=== PATIENT | male | born 1935 | race Hispanic/Latino ===

== ENCOUNTER → 2018-12-28 | Outpatient (CLI) | payer OTHER ==
[~2018-12-28] MED LIST: AMLO5TAB9 PO; ASPI-555 PO; ESOM40VI2 IV; LOSA100T58 PO
== END | disposition home or self-care (01) ==
LOC: RAH 11:36
PROVIDERS: ATTEND Internal Medicine
DX: M17.0 Bilateral primary osteoarthritis of knee (principal); M25.462 Effusion, left knee
CPT/HCPCS: 73562

== ENCOUNTER → 2024-04-02 | Outpatient (CLI) | payer OTHER ==
[~2024-04-02] MED LIST changes: +AMLO-257 PO; -AMLO5TAB9 PO; -ASPI-555 PO; +ASPI-556 PO; -LOSA100T58 PO; +LOSA100T59 PO
--- NOTE | 2024-04-02 12:18 | HMCIMG ---
RIBS UNILAT 2V LT REASON: PLEURODYNIA TECHNIQUE: 3 views were obtained. FINDINGS: There is no evidence of fracture or dislocation. Underlying lung appears clear. The soft tissues appear unremarkable. There is no evidence of a radiopaque foreign body. IMPRESSION: No acute findings.
--- NOTE | 2024-04-02 13:17 | HMCIMG ---
Exam: CERVICAL SPINE 2 VIEWS REASON: CERVICALGIA TECHNIQUE: 3 views were obtained. FINDINGS: There are normal appearing vertebral bodies. There is moderate interspace narrowing C5-6 and C6-7. Remaining interspaces are preserved. There are no visible fractures. Soft tissues appear unremarkable. IMPRESSION: 1. Moderate degenerative disc disease C5-6 and C6-7. 2. No acute finding.
== END | disposition home or self-care (01) ==
LOC: RAH 09:48
PROVIDERS: ATTEND Internal Medicine
DX: M50.322 Other cervical disc degeneration at C5-C6 level (principal); M50.323 Other cervical disc degeneration at C6-C7 level; M48.02 Spinal stenosis, cervical region; R07.89 Other chest pain; R07.81 Pleurodynia
CPT/HCPCS: 71100; 72040

== ENCOUNTER → 2024-04-03 | Outpatient (CLI) | payer OTHER ==
--- NOTE | 2024-04-03 15:53 | HMCIMG ---
Exam: NONCONTRAST CT BRAIN REASON: HEADACHE. COMPARISON: None. TECHNIQUE: Images are obtained from vertex to the skull base. The exam was performed without IV contrast. FINDINGS: There are generous ventricles and sulci. There is decreased attenuation in the deep central white matter. These findings are consistent with atrophy. There are no acute appearing focal parenchymal lesions. There is no evidence of mass, intracranial hemorrhage or acute stroke. Posterior fossa and brainstem structures appear unremarkable. There are no abnormal fluid collections. Extra cranial soft tissues appear unremarkable as well. IMPRESSION: 1. Atrophy, no acute finding. CT was performed with one or more following dose reduction techniques: automated exposure control, adjustment of the mA and kv according to patient's size, or use of a iterative reconstruction technique.
== END | disposition home or self-care (01) ==
LOC: RAH 13:17
PROVIDERS: ATTEND Internal Medicine
DX: G31.9 Degenerative disease of nervous system, unspecified (principal); R51.9 Headache, unspecified
CPT/HCPCS: 70450